=== PATIENT | female | born 1985 | race Hispanic/Latino ===

== ENCOUNTER 2017-09-07 21:48 | Emergency (ER) | payer OTHER ==
[~2017-09-07] VITALS: Ht 152.4 cm; Wt 53.5 kg
[2017-09-07 23:02] LABS: INFLUENZAE A&B ANTIGEN (RAPID) NEGATIVE (NEGATIVE)
[2017-09-07 23:10] LABS: STREPTOCOCCUS GRP A ANTIGEN NEGATIVE (NEGATIVE)
--- NOTE | 2017-09-07 23:34 | Diagnostic Imaging Report ---
EXAM: CHEST 2 VIEWS, PA and lateral DATE: 09/07/2017 10:29 PM Time stamp on exam: 2256 hours INDICATION: Cough for one month COMPARISON: None FINDINGS: LINES/TUBES: None LUNGS: No consolidations or edema. PLEURA: No effusions or pneumothorax. HEART AND MEDIASTINUM: Normal size and contour. BONES AND SOFT TISSUES: No acute findings. IMPRESSION: No acute thoracic abnormality. Signed by: Dr. Mally Jung M.D. on 09/07/2017 11:30 PM
[2017-09-08 00:21] VITALS: BP 114/62
== END 2017-09-08 00:25 | disposition home or self-care (01) ==
LOC: ER 21:54
DX: J30.2 Other seasonal allergic rhinitis (principal)
CPT/HCPCS: 71020; 83518; 87070; 87400; 99283

== ENCOUNTER 2025-02-14 22:03 | Emergency (ER) | payer OTHER ==
[~2025-02-14] VITALS: Ht 154.9 cm; Wt 65.3 kg
[2025-02-14 22:25] VITALS: PULSE 72; RESP 18; TEMP 98.8
[2025-02-14] MEDS: TETRACAINE HCL 0.5% OPTH SOLN 4 ML BTL OP ONE (22:38)
[2025-02-14] MEDS: FLUORESCEIN SOD(OPTH) 1 MG STRP OP ONE (22:39)
[2025-02-14] MEDS: ERYTHROMYCIN (OPTH) 3.5 GM OINT OP ONE (22:39)
[2025-02-14 22:51] VITALS: BP 120/78; PULSE 72; RESP 18; O2SAT 97
== END 2025-02-14 22:53 | disposition home or self-care (01) ==
LOC: FSED 22:11
DX: S05.01XA Injury of conjunctiva and corneal abrasion without foreign body, right eye, initial encounter (principal); X58.XXXA Exposure to other specified factors, initial encounter; Y92.89 Other specified places as the place of occurrence of the external cause; F41.9 Anxiety disorder, unspecified; F90.9 Attention-deficit hyperactivity disorder, unspecified type
CPT/HCPCS: 99283